=== PATIENT | female | born 1950 | race Caucasian/White ===

== ENCOUNTER 2020-02-04 08:40 | Outpatient (REF) | payer MEDICARE, SELFPAY ==
[2020-02-04 09:18] LABS: MANUAL DIFF FLAG NO
[2020-02-04 09:25] LABS: Basophils Percent Auto 0.6 % (0-2); Eosinophils Absolute Auto 0.2 X10*3/uL (0.0-0.4); Eosinophils Percent Auto 3.5 % (0-4); Hematocrit 42.5 % (37-47); Hemoglobin 14.2 g/dl (12.0-16.0); Imm Gran Abs Auto 0.02 X10*3/uL (0.00-0.03); Imm Gran Pct Auto 0.3 % (0.0-0.4); Lymphocytes Percent Auto 29.5 % (20-40); Mean Corpuscular HGB Conc 33.4 g/dl (31.0-35.0); Mean Corpuscular Hemoglobin 30.2 pg (27.0-33.0); Mean Corpuscular Volume 90.4 fL (80-98); Mean Platelet Volume 9.9 fL (9.4-12.3); Monocytes Absolute Auto 0.5 X10*3/uL (0.1-1.2); Monocytes Percent Auto 7.4 % (2-11); Neutrophils Absolute Auto 4.1 X10*3/uL (2.0-8.3); Neutrophils Percent Auto 58.7 % (45-73); Platelet Count 213 X10*3/uL (160-400); Red Cell Distribution Width 12.8 % (11.0-16.0); White Blood Count 6.9 X10*3/uL (4.8-10.8)
[2020-02-04 09:41] LABS: Alanine Aminotransferase 23 U/L (0-31); Alkaline Phosphatase 94 U/L (39-117); Anion Gap 11 (12-20); Aspartate Amino Transferase 24 U/L (5-31); Bilirubin Total 0.3 mg/dL (0.0-1.0); Blood Urea Nitrogen 12 mg/dL (9-16); Calcium 8.7 mg/dL (8.4-10.2); Carbon Dioxide 29 mmol/L (22-29); Chloride 104 mmol/L (96-108); Cholesterol 125 mg/dL; Estimated Glomerular Filt Rate > 60; Glucose Fasting 169 mg/dL (60-99); HDL Cholesterol 40 mg/dL; LDL Cholesterol Calculated 61 mg/dl; Potassium 4.5 mmol/l (3.3-5.1); Sodium 139 mmol/L (135-145); Total Protein 6.4 g/dL (6.5-8.0); Triglycerides 124 mg/dL
[2020-02-04 10:02] LABS: Thyroid Stimulating Hormone 3.07 mIU/mL (0.32-4.0); Vitamin D 25-OH Total 41.6 ng/mL (>30)
== END 2020-02-04 08:41 | disposition home or self-care (01) ==
LOC: HO.LAB 08:40
PROVIDERS: PCP Internal Medicine; Visit Provider Internal Medicine
DX: E11.65 Type 2 diabetes mellitus with hyperglycemia (principal); I10 Essential (primary) hypertension; E78.00 Pure hypercholesterolemia, unspecified; E03.9 Hypothyroidism, unspecified; E55.9 Vitamin D deficiency, unspecified
CPT/HCPCS: 36415; 80053; 80061; 82306; 84443; 85025

== ENCOUNTER 2020-08-30 06:38 | Outpatient (REF) | payer MEDICARE, SELFPAY ==
[2020-08-30 06:59] LABS: MANUAL DIFF FLAG NO
[2020-08-30 07:16] LABS: Basophils Absolute Auto 0.1 X10*3/uL (0.0-0.2); Basophils Percent Auto 0.9 % (0-2); Eosinophils Absolute Auto 0.2 X10*3/uL (0.0-0.4); Eosinophils Percent Auto 3.4 % (0-4); Hematocrit 44.9 % (37-47); Hemoglobin 14.8 g/dl (12.0-16.0); Imm Gran Abs Auto 0.02 X10*3/uL (0.00-0.03); Imm Gran Pct Auto 0.3 % (0.0-0.4); Lymphocytes Absolute Auto 2.2 X10*3/uL (1.2-4.9); Lymphocytes Percent Auto 33.6 % (20-40); Mean Corpuscular Hemoglobin 29.8 pg (27.0-33.0); Mean Corpuscular Volume 90.3 fL (80-98); Mean Platelet Volume 9.8 fL (9.4-12.3); Monocytes Absolute Auto 0.5 X10*3/uL (0.1-1.2); Monocytes Percent Auto 7.9 % (2-11); Neutrophils Absolute Auto 3.6 X10*3/uL (2.0-8.3); Neutrophils Percent Auto 53.9 % (45-73); Platelet Count 240 X10*3/uL (160-400); Red Blood Count 4.97 X10*6/uL (4.20-5.50); Red Cell Distribution Width 12.8 % (11.0-16.0); White Blood Count 6.7 X10*3/uL (4.8-10.8)
[2020-08-30 07:52] LABS: Estimated Average Glucose 174 mg/dL; Hemoglobin A1c % 7.7 %
[2020-08-30 07:59] LABS: Anion Gap 15 (12-20); Blood Urea Nitrogen 13 mg/dL (9-16); Carbon Dioxide 27 mmol/L (22-29); Chloride 102 mmol/L (96-108); Potassium 4.8 mmol/L (3.3-5.1); Sodium 139 mmol/L (135-145)
[2020-08-30 08:00] LABS: Alanine Aminotransferase 29 U/L (0-31); Albumin Level 4.3 g/dL (3.5-5.0); Alkaline Phosphatase 97 U/L (39-117); Aspartate Amino Transferase 22 U/L (5-31); Bilirubin Total 0.4 mg/dL (0.0-1.0); Calcium 9.6 mg/dL (8.4-10.2); Cholesterol 143 mg/dL; Estimated Glomerular Filt Rate > 60; Glucose Random 214 mg/dL (60-115); HDL Cholesterol 46 mg/dL; LDL Cholesterol Calculated 68 mg/dl; Magnesium 2.2 mg/dL (1.6-2.6); Total Protein 6.9 g/dL (6.5-8.0); Triglycerides 147 mg/dL
[2020-08-30 08:05] LABS: Thyroid Stimulating Hormone 3.12 uIU/mL (0.32-4.0)
[2020-08-30 09:24] LABS: Glucose Urine UA 250 MG/DL (NEG); Leukocyte Esterase Urine NEG (NEG); Nitrite Urine NEG (NEG); Specific Gravity - Urine >= 1.030 (1.005-1.025); Urine Blood NEG (NEG); Urine Ketones NEG (NEG); Urine Protein NEG (NEG-TRACE)
[2020-08-30 09:25] LABS: Appearance Urine HAZY; Color Urine YELLOW
[2020-08-30 09:53] LABS: Microalbum/Creatinine Ratio Ur 5.8 ug/mg cr
== END 2020-08-30 06:39 | disposition home or self-care (01) ==
LOC: HO.LAB 06:38
PROVIDERS: PCP Internal Medicine; Visit Provider Internal Medicine
DX: I10 Essential (primary) hypertension (principal); E78.00 Pure hypercholesterolemia, unspecified; E11.42 Type 2 diabetes mellitus with diabetic polyneuropathy; E55.9 Vitamin D deficiency, unspecified
CPT/HCPCS: 36415; 80053; 80061; 81003; 82043; 82306; 83036; 83735; 84443; 85025

== ENCOUNTER 2020-12-27 06:47 | Outpatient (REF) | payer MEDICARE, SELFPAY ==
[2020-12-27 07:47] LABS: Alanine Aminotransferase 25 U/L (0-31); Albumin Level 4.3 g/dL (3.5-5.0); Alkaline Phosphatase 108 U/L (39-117); Anion Gap 15 (12-20); Aspartate Amino Transferase 22 U/L (5-31); Bilirubin Total 0.5 mg/dL (0.0-1.0); Blood Urea Nitrogen 14 mg/dL (9-16); Calcium 9.2 mg/dL (8.4-10.2); Carbon Dioxide 25 mmol/L (22-29); Chloride 104 mmol/L (96-108); Estimated Glomerular Filt Rate > 60; Glucose Random 210 mg/dL (60-115); Sodium 139 mmol/L (135-145)
[2020-12-27 07:52] LABS: Estimated Average Glucose 154 mg/dL
== END 2020-12-27 06:48 | disposition home or self-care (01) ==
LOC: HO.LAB 06:47
PROVIDERS: PCP Internal Medicine; Visit Provider Internal Medicine
DX: I10 Essential (primary) hypertension (principal); E11.42 Type 2 diabetes mellitus with diabetic polyneuropathy
CPT/HCPCS: 36415; 80053; 83036

== ENCOUNTER 2021-05-24 13:38 | Outpatient (REF) | payer MEDICARE, SELFPAY ==
--- NOTE | 2021-05-24 | PFT_ITS ---
FLOWS: FEV1 88% of predicted at 2.13 L. FVC 94% of predicted at 2.99 L. FEV1 to FVC ratio of 0.71. No bronchodilator response. LUNG VOLUMES: Total lung capacity 106% of predicted at 5.56 L. Residual volume 124% of predicted at 2.76 L. Slow vital capacity 93% of predicted at 2.80 L. Expiratory reserve volume 33% of predicted at 0.26 L. Diffusion capacity is mildly decreased. IMPRESSION: No obstructive or restrictive ventilatory defect. No bronchodilator response. Increased residual volume suggests air trapping. Decreased expiratory reserve volume suggests extrathoracic restriction likely secondary to abdominal obesity. Decreased diffusion capacity suggests emphysema. MD ELADIO Jewell/MODL / [id number]
== END 2021-05-24 13:39 | disposition home or self-care (01) ==
LOC: HO.RESP 13:38
PROVIDERS: PCP Internal Medicine; Visit Provider Internal Medicine
DX: R06.00 Dyspnea, unspecified (principal)
CPT/HCPCS: 94060; 94727; 94729

== ENCOUNTER 2021-10-18 08:01 | Outpatient (REF) | payer MEDICARE, SELFPAY ==
[2021-10-18 08:10] LABS: MANUAL DIFF FLAG NO
[2021-10-18 08:48] LABS: Basophils Absolute Auto 0.1 X10*3/uL (0.0-0.2); Basophils Percent Auto 0.8 % (0-2); Eosinophils Absolute Auto 0.2 X10*3/uL (0.0-0.4); Eosinophils Percent Auto 3.3 % (0-4); Hematocrit 43.8 % (37.0-47.0); Hemoglobin 14.2 g/dl (12.0-16.0); Imm Gran Abs Auto 0.02 X10*3/uL (0.00-0.03); Imm Gran Pct Auto 0.3 % (0.0-0.4); Lymphocytes Absolute Auto 1.9 X10*3/uL (1.2-4.9); Lymphocytes Percent Auto 29.9 % (20-40); Mean Corpuscular HGB Conc 32.4 g/dl (31.0-35.0); Mean Corpuscular Hemoglobin 29.1 pg (27.0-33.0); Mean Corpuscular Volume 89.8 fL (80.0-98.0); Mean Platelet Volume 9.8 fL (9.4-12.3); Monocytes Absolute Auto 0.5 X10*3/uL (0.1-1.2); Monocytes Percent Auto 7.6 % (2-11); Neutrophils Absolute Auto 3.8 x10*3/uL (2.0-8.3); Neutrophils Percent Auto 58.1 % (45-73); Platelet Count 216 X10*3/uL (160-400); Red Blood Count 4.88 X10*6/uL (4.20-5.50); Red Cell Distribution Width 12.5 % (11.0-16.0); White Blood Count 6.5 X10*3/uL (4.8-10.8)
[2021-10-18 09:25] LABS: Alanine Aminotransferase 26 U/L (0-31); Alkaline Phosphatase 88 U/L (39-117); Anion Gap 14 (12-20); Aspartate Amino Transferase 24 U/L (5-31); Bilirubin Total 0.4 mg/dL (0.0-1.0); Blood Urea Nitrogen 12 mg/dL (9-16); Calcium 9.2 mg/dL (8.4-10.2); Carbon Dioxide 26 mmol/L (22-29); Chloride 104 mmol/L (96-108); Estimated Glomerular Filt Rate > 60; Glucose Random 191 mg/dL (60-115); Potassium 4.3 mmol/L (3.3-5.1); Sodium 140 mmol/L (135-145); Total Protein 6.5 g/dL (6.5-8.0)
[2021-10-18 09:31] LABS: Estimated Average Glucose 166 mg/dL; Hemoglobin A1c % 7.4 %
== END 2021-10-18 08:02 | disposition home or self-care (01) ==
LOC: HO.LAB 08:01
PROVIDERS: PCP Internal Medicine; Visit Provider Internal Medicine
DX: I10 Essential (primary) hypertension (principal); E11.40 Type 2 diabetes mellitus with diabetic neuropathy, unspecified
CPT/HCPCS: 36415; 80053; 83036; 85025

== ENCOUNTER 2022-05-22 06:18 | Outpatient (REF) | payer MEDICARE, SELFPAY ==
[2022-05-22 06:25] LABS: MANUAL DIFF FLAG NO
[2022-05-22 07:45] LABS: Basophils Absolute Auto 0.1 X10*3/uL (0.0-0.2); Basophils Percent Auto 0.9 % (0-2); Eosinophils Absolute Auto 0.2 X10*3/uL (0.0-0.4); Eosinophils Percent Auto 2.8 % (0-4); Hematocrit 44.3 % (37.0-47.0); Hemoglobin 14.5 g/dl (12.0-16.0); Imm Gran Abs Auto 0.02 X10*3/uL (0.00-0.03); Imm Gran Pct Auto 0.3 % (0.0-0.4); Lymphocytes Absolute Auto 2.2 X10*3/uL (1.2-4.9); Lymphocytes Percent Auto 27.9 % (20-40); Mean Corpuscular HGB Conc 32.7 g/dl (31.0-35.0); Mean Corpuscular Hemoglobin 29.7 pg (27.0-33.0); Mean Corpuscular Volume 90.8 fL (80.0-98.0); Mean Platelet Volume 10.1 fL (9.4-12.3); Monocytes Absolute Auto 0.6 X10*3/uL (0.1-1.2); Monocytes Percent Auto 7.8 % (2-11); Neutrophils Absolute Auto 4.8 x10*3/uL (2.0-8.3); Neutrophils Percent Auto 60.3 % (45-73); Platelet Count 245 X10*3/uL (160-400); Red Blood Count 4.88 X10*6/uL (4.20-5.50); Red Cell Distribution Width 12.8 % (11.0-16.0); White Blood Count 7.9 X10*3/uL (4.8-10.8)
[2022-05-22 08:07] LABS: Appearance Urine Clear; Color Urine Yellow; Glucose Urine UA 100 mg/dL (Negative); Leukocyte Esterase Urine Small (1+) (Negative); Nitrite Urine Negative (Negative); UMIC TRIGGER UA YES; Urine Blood Negative (Negative); Urine Ketones Negative (Negative); Urine Protein Negative (Neg-Trace)
[2022-05-22 08:18] LABS: Estimated Average Glucose 151 mg/dL; Hemoglobin A1c % 6.9 %
[2022-05-22 08:22] LABS: Alanine Aminotransferase 17 U/L (0-31); Alkaline Phosphatase 99 U/L (39-117); Anion Gap 13 (12-20); Aspartate Amino Transferase 20 U/L (5-31); Bilirubin Total 0.4 mg/dL (0.0-1.0); Blood Urea Nitrogen 13 mg/dL (9-16); Calcium 9.1 mg/dL (8.4-10.2); Carbon Dioxide 27 mmol/L (22-29); Chloride 102 mmol/L (96-108); Cholesterol 142 mg/dL; Estimated Glomerular Filt Rate > 60; Glucose Random 167 mg/dL (60-115); HDL Cholesterol 42 mg/dL; LDL Cholesterol Calculated 75 mg/dl; Potassium 4.3 mmol/L (3.3-5.1); Sodium 138 mmol/L (135-145); Total Protein 6.5 g/dL (6.5-8.0); Triglycerides 128 mg/dL
[2022-05-22 08:23] LABS: Bacteria Urine None Seen (None Seen); Hyaline Casts Urine 0-2 /LPF (0-2); RBC Urine 0-2 /HPF (0-2); WBC Urine 0-5 /HPF (0-5)
[2022-05-22 08:33] LABS: Creatinine Urine 99.98 mg/dL
[2022-05-22 08:38] LABS: Thyroid Stimulating Hormone 2.11 uIU/mL (0.32-4.0)
[2022-05-22 08:43] LABS: Vitamin B12 317 pg/mL (200-900)
== END 2022-05-22 06:19 | disposition home or self-care (01) ==
LOC: HO.LAB 06:18
PROVIDERS: PCP Internal Medicine; Visit Provider Internal Medicine
DX: E78.00 Pure hypercholesterolemia, unspecified (principal); E11.42 Type 2 diabetes mellitus with diabetic polyneuropathy; R00.2 Palpitations; E03.9 Hypothyroidism, unspecified
CPT/HCPCS: 36415; 80053; 80061; 81001; 81003; 82043; 82607; 83036; 84443; 85025

== ENCOUNTER 2022-09-27 02:17 | Emergency (ER) | payer MEDICARE, SELFPAY ==
--- NOTE | 2022-09-27 | ECG_ITS ---
Test Reason : DIZZINESS Blood Pressure : / mmHG Vent. Rate : 076 BPM Atrial Rate : 076 BPM P-R Int : 244 ms QRS Dur : 114 ms QT Int : 412 ms P-R-T Axes : 061 -53 036 degrees QTc Int : 463 ms Sinus rhythm with 1st degree A-V block Left axis deviation Right bundle branch block Minimal voltage criteria for LVH, may be normal variant ( R in aVL ) Inferior infarct , age undetermined Abnormal ECG When compared with ECG of 03-MAR-2011 07:21, WI interval has increased Right bundle branch block is now Present Referred By: Generic ED Physician Electronically Signed By:HARRISON DE JESUS
--- NOTE | ~2022-09-27 | CT_ITS ---
EXAMINATION: CT HEAD WITHOUT CONTRAST CLINICAL INFORMATION: Dizziness COMPARISON: 06/27/2013 TECHNIQUE: Contiguous axial imaging was performed from the skull base to vertex without intravenous administration of contrast. This CT examination was performed using dose optimization techniques as appropriate, variously including the following: *Automated exposure control *Adjustment of mA and/or kV according to patient size (this includes techniques or standardized protocols for targeted exams where dose is matched to indication/reason for exam; i.e. extremities or head) *Use of iterative reconstruction technique DLP: 839 mGy-cm FINDINGS: There is no evidence of acute intracranial hemorrhage or territorial infarction. No abnormal mass effect or midline shift is seen. [place]ott to white matter differentiation is well preserved. No extra-axial fluid collections are identified. No hydrocephalus. Proportional prominence of the ventricles and sulcal spaces is consistent with mild volume loss. Patchy periventricular and deep white matter hypoattenuation is consistent with moderate small vessel ischemic changes. There is an 8 x 4 x 10 mm extra-axial ovoid mass along the right aspect of the anterior falx most compatible with a small meningioma. No acute osseous or soft tissue abnormality. The mastoid air cells and visualized portions of the paranasal sinuses are well aerated, apart from mild mucosal thickening in the right maxillary sinus.. CT/CT head/brain wo IV con IMPRESSION: * No acute intracranial pathology. * Moderate chronic white matter small vessel ischemic changes and mild generalized brain parenchymal volume loss. * Incidental 10 mm extra-axial mass along the right aspect of the anterior falx most compatible with a small meningioma.
[2022-09-27 02:22] VITALS: BP 120/80; BP 150/71; PULSE 83; PULSE 85; RESP 13; O2SAT 96; O2SAT 97; BMI 34.0
[2022-09-27] MEDS: Ondansetron ODT 4 MG TAB.RAPDIS TRANSLINGU (02:44)
[2022-09-27 02:58] LABS: MANUAL DIFF FLAG NO
[2022-09-27 03:00] LABS: Basophils Percent Auto 0.6 % (0-2); Eosinophils Absolute Auto 0.2 X10*3/uL (0.0-0.4); Eosinophils Percent Auto 2.5 % (0-4); Hematocrit 41.7 % (37.0-47.0); Hemoglobin 13.6 g/dl (12.0-16.0); Imm Gran Abs Auto 0.02 X10*3/uL (0.00-0.03); Imm Gran Pct Auto 0.3 % (0.0-0.4); Lymphocytes Absolute Auto 1.9 X10*3/uL (1.2-4.9); Lymphocytes Percent Auto 26.6 % (20-40); Mean Corpuscular HGB Conc 32.6 g/dl (31.0-35.0); Mean Corpuscular Hemoglobin 28.9 pg (27.0-33.0); Mean Corpuscular Volume 88.5 fL (80.0-98.0); Mean Platelet Volume 9.7 fL (9.4-12.3); Monocytes Absolute Auto 0.6 X10*3/uL (0.1-1.2); Monocytes Percent Auto 8.3 % (2-11); Neutrophils Absolute Auto 4.5 x10*3/uL (2.0-8.3); Neutrophils Percent Auto 61.7 % (45-73); Platelet Count 203 X10*3/uL (160-400); Red Blood Count 4.71 X10*6/uL (4.20-5.50); Red Cell Distribution Width 12.7 % (11.0-16.0); White Blood Count 7.3 X10*3/uL (4.8-10.8)
[2022-09-27 03:01] LABS: Glucose, Whole Blood 178 mg/dL (60-115)
[2022-09-27 03:18] LABS: Alanine Aminotransferase 18 U/L (0-31); Albumin Level 4.1 g/dL (3.5-5.0); Alkaline Phosphatase 102 U/L (39-117); Anion Gap 15 (12-20); Aspartate Amino Transferase 16 U/L (5-31); Bilirubin Direct 0.1 mg/dL (0.0-0.5); Bilirubin Total 0.3 mg/dL (0.0-1.0); Blood Urea Nitrogen 11 mg/dL (9-16); Calcium 9.4 mg/dL (8.4-10.2); Carbon Dioxide 24 mmol/L (22-29); Chloride 107 mmol/L (96-108); Creatinine Clr Calc Pharmacy 78.9; Estimated Glomerular Filt Rate > 60; Glucose Random 172 mg/dL (60-115); Lipase 28 U/L (8-78); Potassium 3.6 mmol/L (3.3-5.1); Sodium 142 mmol/L (135-145); Total Protein 6.6 g/dL (6.5-8.0)
[2022-09-27] MEDS: Prochlorperazine Edisylate 10 MG/2 ML VIAL IVPUSH (03:51)
--- OUTSIDE RECORDS SUMMARY | 2022-09-27 03:52 | XMS_ITS | Continuity of Care Document ---
Author Name Unknown Organization [facility] ter Address [address] [place] [id number] Care Team Providers Care Log Roller Name Role Phone Valente Curry MD Primary Care Physician [phone] [place] [facility] [place] 08/28/[address] [address]- [facility] Attending Physician: Valente Curry MD Admitting Physician: Valente Curry MD Referring Physician: Valente Curry MD Allergies, Adverse Reactions, Alerts Substance Reaction Severity Status penicillin vomiting Moderate Active Adhesive Bandage 1 blisters Moderate Active 1pt allergic to tape, steri-strips Medications Atenolol = 50 mg, By Mouth, Daily, 0 Refills, Maintenance, 03/22/14 13:25:02 Start Date: 03/22/14 Status: Ordered Diltiazem = 120 mg, 0 Refills, Maintenance, 03/22/14 13:25:56 Start Date: 03/22/14 Status: Ordered GlipiZIDE = 5 mg, By Mouth, Daily, 0 Refills, Maintenance, 03/22/14 13:26:43 Start Date: 03/22/14 Status: Ordered Levothyroxine = 175 mcg, Daily, 0 Refills, Maintenance, 03/22/14 13:27:28 Start Date: 03/22/14 Status: Ordered Neurontin Capsule 300 mg, By Mouth, 3 times a day, Maintenance, 03/22/14 13:28:42 Start Date: 03/22/14 Status: Ordered Pravastatin = 40 mg, By Mouth, Daily at bedtime, 0 Refills, Maintenance, 03/22/14 13:26:08 Start Date: 03/22/14 Status: Ordered Problem List Condition Effective Dates Status Health Status Inform ant Leg pain, bilateral(Confirmed) Active
--- NOTE | 2022-09-27 04:02 | ED_ITS ---
HPI - Dizziness General Chief Complaint: Dizziness Stated Complaint: Dizziness + nausea and feels like hearts racing Time Seen by Provider: 09/27/22 02:52 Source: patient Mode of arrival: EMS History of Present Illness HPI Narrative: 72-year-old female is brought in by EMS with than underlying history hypertension, S current everyday smoker, who states that she has had dizziness and nausea for over a week, followed up with her ENT physician who did remove cerumen from her right ear and she states that afterwards initially the dizzines s and nausea resolved, she was started on generic Dramamine, but states that the dizziness and the nausea is continued to persist, she does not eat very much because it is so significant and then she states that she has had much worse dizziness throughout the day to the point that she is unable to stand at this time. She otherwise denies shortness of breath, chest pain, bowel or bladder dysfunction and denies any visual or auditory changes. Related Data Previous Rx's Medication Instructions Recorded ondansetron HCl 8 mg tablet 8 mg PO Q8H PRN nausea and 01/18/21 vomiting #20 tabs prednisone 20 mg tablet 20 mg PO .COMPLEX #18 tabs 01/18/21 meclizine 12.5 mg tablet 12.5 mg PO TID PRN dizziness #10 09/27/22 tabs Allergies Allergy/AdvReac Type Severity Reaction Status Date / Time doxycycline [From VIBRAMYCIN] Allergy Severe SWELLING Verified 01/18/21 14:01 Penicillins [PCN] AdvReac Intermediate VOMITING Verified 01/18/21 14:01 Review of Systems Review of Systems: Pertinent positives and negatives as stated in HPI PMFSH Past Medical History Source: nursing notes reviewed Social History Social History Alcohol intake: never Smoked in Last 30 Days: Yes Use of substances other than those prescribed or required for medical reasons: No Advance Directives: No Advance Directives Information Provided: Yes Physical Exam Vital Signs: Vital Signs: Last Vital Signs Pulse 88 09/27/22 05:17 Resp 13 09/27/22 02:22 BP 177/44 H 09/27/22 05:17 Pulse Ox 96 09/27/22 02:22 O2 Del Method Room Air 09/27/22 02:22 BMI result Body Mass Index 34.0 VITAL SIGNS: Reviewed. GENERAL: Well developed, well nourished, in no acute distress. HEAD: Normocephalic/atraumatic EYES: PERRLA, EOMI EARS: Ext canals without abnormality, TMs non-bulging and non-erythematous NOSE: Nares patent bilateral OROPHARYNX: no oral lesions noted, posterior pharynx clear and non-erythematous without noted tonsillar enlargement/erythema/exudates NECK: Supple, no adenopathy LUNGS: Normal breath sounds. No adventitious sounds or accessory muscle use. SpO2<96> CARDIOVASCULAR: Regular rate and rhythm without noted murmurs, no JVD or lower extremity edema. ABDOMEN: Soft, non-tender, non-distended with bowel sounds. MUSCULOSKELETAL: No tenderness, deformities, or effusions noted on gross inspect ion. EXTREMITIES: No cyanosis, clubbing or edema. SKIN: Inspection of the skin reveals no rashes NEUROLOGIC: Alert and oriented x 4. Strength and sensation to light touch were grossly intact x 4, no facial asymmetry, no pronator drift, heel to cornejo is intact, past pointing is intact, cranial nerves 2-12 are grossly intact. Medications Administered Discontinued Medications Generic Name Dose Route Start Last Admin Trade Name Freq PRN Reason Stop Dose Admin Sodium Chloride 1,000 mls @ 999 mls/hr 09/27/22 03:45 09/27/22 05:28 Ns IV 09/27/22 04:45 Infused .Q1H1M JONAS Infusion Meclizine HCl 12.5 mg 09/27/22 04:55 09/27/22 05:28 Meclizine Hcl 12.5 Mg Tablet PO 09/27/22 04:56 12.5 mg ONCE ONE Administration Ondansetron HCl 4 mg 09/27/22 02:37 09/27/22 02:44 Ondansetron Odt 4 Mg Tab.Rapdis TRANSLINGU 09/27/22 02:38 4 mg ONCE ONE Administration Prochlorperazine Edisylate 10 mg 09/27/22 03:38 09/27/22 03:51 Prochlorperazine Edisylate 10 Mg/2 Ml Vial IVPUSH 09/27/22 03:39 10 mg ONCE ONE Administration Medical Decision Making Medical Decision Making MDM Narrative: 72-year-old female who does report that approximately 1 and half years ago she had a significant episode of vertigo but states that this does feel somewhat different. Will obtain basic labs, EKG, and based on symptom all NG with hypertension and an everyday smoker will pursue CT scans. Reviewed all investigations as well as imaging studies in my interpretation as that patient likely has BPPV, she was given meclizine, orthostatics are noted to be within normal limits but also gave patient 1 L of IV fluids. Patient was noted to ambulate to the bathroom without difficulty. Patient is declining CT angio of head and neck. On re-evaluation patient is feeling better and will be discharged home. Differential Diagnosis Please see the discussion above Lab Data Please see the discussion above 09/27/22 02:53 09/27/22 02:53 Labs: Lab Results 09/27/22 09/27/22 09/27/22 Range/Units 02:44 02:53 02:53 WBC 7.3 (4.8-10.8) X10*3/uL RBC 4.71 (4.20-5.50) X10*6/uL Hgb 13.6 (12.0-16.0) g/dl Hct 41.7 (37.0-47.0) % MCV 88.5 (80.0-98.0) fL MCH 28.9 (27.0-33.0) pg MCHC 32.6 (31.0-35.0) g/dl RDW 12.7 (11.0-16.0) % Plt Count 203 (160-400) X10*3/uL MPV 9.7 (9.4-12.3) fL Immature Gran % (Auto) 0.3 (0.0-0.4) % Neut % (Auto) 61.7 (45-73) % Lymph % (Auto) 26.6 (20-40) % [place] % (Auto) 8.3 (2-11) % Eos % (Auto) 2.5 (0-4) % Baso % (Auto) 0.6 (0-2) % Lymph # (Auto) 1.9 (1.2-4.9) X10*3/uL [place] # (Auto) 0.6 (0.1-1.2) X10*3/uL Eos # (Auto) 0.2 (0.0-0.4) X10*3/uL Baso # (Auto) 0.0 (0.0-0.2) X10*3/uL Abs Immat Gran (auto) 0.02 (0.00-0.03) X10*3/uL Absolute Neuts (auto) 4.5 (2.0-8.3) x10*3/uL Absolute Nucleated RBC 0.000 (0.0-0.012) X10*3/uL Nucleated RBC % (auto) 0.0 (0.0-0.2) /100WBC Sodium 142 (135-145) mmol/L Potassium 3.6 (3.3-5.1) mmol/L Chloride 107 (96-108) mmol/L Carbon Dioxide 24 (22-29) mmol/L Anion Gap 15 (12-20) BUN 11 (9-16) mg/dL Creatinine 0.72 (0.5-1.4) mg/dL Estim Creat Clear Calc 78.9 Estimated GFR > 60 POC Glucose 178 H (60-115) mg/dL Random Glucose 172 H (60-115) mg/dL Calcium 9.4 (8.4-10.2) mg/dL Total Bilirubin 0.3 (0.0-1.0) mg/dL Direct Bilirubin 0.1 (0.0-0.5) mg/dL AST 16 (5-31) U/L ALT 18 (0-31) U/L Alkaline Phosphatase 102 (39-117) U/L Troponin I High Sens (<3.5-17.0) ng/L Total Protein 6.6 (6.5-8.0) g/dL Albumin 4.1 (3.5-5.0) g/dL Lipase 28 (8-78) U/L Urine Test (NEGATIVE) 09/27/22 09/27/22 Range/Units 04:39 06:22 WBC (4.8-10.8) X10*3/uL RBC (4.20-5.50) X10*6/uL Hgb (12.0-16.0) g/dl Hct (37.0-47.0) % MCV (80.0-98.0) fL MCH (27.0-33.0) pg MCHC (31.0-35.0) g/dl RDW (11.0-16.0) % Plt Count (160-400) X10*3/uL MPV (9.4-12.3) fL Immature Gran % (Auto) (0.0-0.4) % Neut % (Auto) (45-73) % Lymph % (Auto) (20-40) % [place] % (Auto) (2-11) % Eos % (Auto) (0-4) % Baso % (Auto) (0-2) % Lymph # (Auto) (1.2-4.9) X10*3/uL [place] # (Auto) (0.1-1.2) X10*3/uL Eos # (Auto) (0.0-0.4) X10*3/uL Baso # (Auto) (0.0-0.2) X10*3/uL Abs Immat Gran (auto) (0.00-0.03) X10*3/uL Absolute Neuts (auto) (2.0-8.3) x10*3/uL Absolute Nucleated RBC (0.0-0.012) X10*3/uL Nucleated RBC % (auto) (0.0-0.2) /100WBC Sodium (135-145) mmol/L Potassium (3.3-5.1) mmol/L Chloride (96-108) mmol/L Carbon Dioxide (22-29) mmol/L Anion Gap (12-20) BUN (9-16) mg/dL Creatinine (0.5-1.4) mg/dL Estim Creat Clear Calc Estimated GFR POC Glucose (60-115) mg/dL Random Glucose (60-115) mg/dL Calcium (8.4-10.2) mg/dL Total Bilirubin (0.0-1.0) mg/dL Direct Bilirubin (0.0-0.5) mg/dL AST (5-31) U/L ALT (0-31) U/L Alkaline Phosphatase (39-117) U/L Troponin I High Sens 3.8 (<3.5-17.0) ng/L Total Protein (6.5-8.0) g/dL Albumin (3.5-5.0) g/dL Lipase (8-78) U/L Urine Test NEGATIVE (NEGATIVE) Independent Interpretation I performed an independent interpretation of an: EKG Interpretation: Sinus rhythm with first-degree AV block, no STEMI, RBBB, comparison EKG is from 2011 so there are obvious changes. Radiology Impression Radiologist Impression: My interpretation is in agreement with radiology's impression. External Record Review External record reviewed: Prior outpatient labs Discharge Plan Discharge Clinical Impression: BPV (benign positional vertigo) Patient Disposition: Home, Self-Care Instructions: Vertigo (ED), Benign Paroxysmal Positional Vertigo (ED) Additional Instructions: 1. Follow-up with primary care provider on Thursday. 2. You have been given a prescription for as needed medication for your vertigo. Return to the ER for any worsening symptoms. Prescriptions: New meclizine 12.5 mg tablet 12.5 mg PO TID PRN (Reason: dizziness) Qty: 10 0RF No Action prednisone 20 mg tablet 20 mg PO .COMPLEX Qty: 18 0RF Rx Instructions: 20 mg PO 3 p.o. daily for 3 days followed by 2 p.o. daily for 3 days followed by 1 p.o. daily for 3 days; ondansetron HCl 8 mg tablet 8 mg PO Q8H PRN (Reason: nausea and vomiting) Qty: 20 0RF Referrals: Valente Curry MD [Primary Care Provider] -
[2022-09-27] MEDS: 0.9 % Sodium Chloride 1,000 ML 999 ML IV (04:15)
[2022-09-27 05:01] LABS: Troponin-I High Sensitivity 3.8 ng/L (<3.5-17.0)
[2022-09-27 05:12] VITALS: BP 174/70; PULSE 80
[2022-09-27 05:14] VITALS: BP 151/57; PULSE 77
[2022-09-27 05:17] VITALS: BP 177/44; PULSE 88
[2022-09-27] MEDS: Meclizine HCl 12.5 MG TABLET PO (05:28)
--- NOTE | 2022-09-27 05:36 | PC.NURSE ---
Pt refusing CTA, stating she is too nauseaus and the CT table is too hard. MD aware.
[2022-09-27 06:29] LABS: Appearance Urine Clear; Color Urine Yellow; Glucose Urine UA Negative (Negative); Leukocyte Esterase Urine Trace (Negative); Nitrite Urine Negative (Negative); Specific Gravity - Urine <= 1.005 (1.005-1.025); UMIC TRIGGER UACC YES; Urine Blood Negative (Negative); Urine Ketones Negative (Negative); Urine Protein Negative (Neg-Trace)
[2022-09-27 06:31] LABS: UPreg QC Valid YES; Urine Pregnancy NEGATIVE (NEGATIVE)
[2022-09-27 07:16] LABS: Bacteria Urine None Seen (None Seen); Hyaline Casts Urine 0-2 /LPF (0-2); RBC Urine 0-2 /HPF (0-2); Squamous Epithelial Cell Urine 0-2 /HPF (0-2); WBC Urine 0-5 /HPF (0-5)
== END 2022-09-27 07:32 | disposition home or self-care (01) ==
PROVIDERS: Emergency Provider Student in an Organized Health Care Education/Training Program; PCP Internal Medicine
DX: H81.10 Benign paroxysmal vertigo, unspecified ear (principal)
CPT/HCPCS: 36415; 70450; 80053; 81001; 81003; 81025; 82248; 82947; 83690; 84484; 85025; 93005; 96361; 96374; 99284; 99285

== ENCOUNTER 2022-11-28 16:14 | Outpatient (REF) | payer MEDICARE, SELFPAY ==
--- NOTE | ~2022-11-28 | MR_ITS ---
EXAMINATION: MR BRAIN WITHOUT CONTRAST CLINICAL INFORMATION: Vertigo and hearing loss. Right ear pain. COMPARISON: Head CT dated 09/27/2022. TECHNIQUE: Multiplanar, multisequence imaging of the brain was performed without contrast. FINDINGS: No diffusion abnormalities are identified to suggest an acute or subacute infarct. The ventricles are normal in size. No mass effect or midline shift is seen. [id number] chronic white matter microangiopathic changes noted with generalized parenchymal volume loss. No extra-axial fluid collections are seen. The brainstem and cerebellum are normal. The VII and VIII cranial nerve complexes are normal in course and caliber. Fluid signal is preserved within the cochlea, semicircular canals, and vestibule on the high-resolution axial FIESTA sequence. No cerebellopontine angle lesion is noted. An incidental 5 mm cyst in the region of the left dentate nucleus is nonspecific and may represent a neuroglial cyst. The gradient refocused acquisition is normal. The craniovertebral junction, marrow signal, and midline structures are normal. The major intracranial flow voids at the level of the [place] are preserved. The dural venous sinus flow voids are maintained. The mastoid air cells are well aerated. There is a mild amount of fluid layering in the right maxillary antrum. MR/MR head/brain wo con IMPRESSION: No acute intracranial process. [id number] chronic white matter microangiopathy. No retrocochlear process evident on this noncontrast study. Mild amount of fluid layering within the right maxillary sinus; correlate for any underlying acute symptomatology.
== END 2022-11-28 16:15 | disposition home or self-care (01) ==
LOC: HO.MRI 16:14
PROVIDERS: PCP Internal Medicine; Visit Provider Internal Medicine
DX: R42 Dizziness and giddiness (principal); R11.0 Nausea; H91.93 Unspecified hearing loss, bilateral; H92.01 Otalgia, right ear
CPT/HCPCS: 70551

== ENCOUNTER 2022-12-10 06:13 | Outpatient (REF) | payer MEDICARE, SELFPAY ==
[2022-12-10 07:23] LABS: Estimated Average Glucose 140 mg/dL; Hemoglobin A1c % 6.5 %
[2022-12-10 07:51] LABS: Alanine Aminotransferase 12 U/L (0-31); Alkaline Phosphatase 84 U/L (39-117); Anion Gap 16 (12-20); Aspartate Amino Transferase 13 U/L (5-31); Blood Urea Nitrogen 9 mg/dL (9-16); Calcium 9.5 mg/dL (8.4-10.2); Carbon Dioxide 25 mmol/L (22-29); Chloride 104 mmol/L (96-108); Estimated Glomerular Filt Rate > 60; Glucose Random 193 mg/dL (60-115); Potassium 3.4 mmol/L (3.3-5.1); Sodium 142 mmol/L (135-145); Total Protein 6.8 g/dL (6.5-8.0)
[2022-12-10 07:54] LABS: Bilirubin Total 0.5 mg/dL (0.0-1.0)
[2022-12-10 08:28] LABS: Appearance Urine Clear; Color Urine Yellow; Glucose Urine UA 250 mg/dL (Negative); Leukocyte Esterase Urine Negative (Negative); Nitrite Urine Negative (Negative); PH 5.5 (5.0-9.0); Urine Blood Negative (Negative); Urine Ketones Negative (Negative); Urine Protein Trace mg/dL (Neg-Trace)
== END 2022-12-10 06:14 | disposition home or self-care (01) ==
LOC: HO.LAB 06:13
PROVIDERS: PCP Internal Medicine; Visit Provider Internal Medicine
DX: E11.42 Type 2 diabetes mellitus with diabetic polyneuropathy (principal); I10 Essential (primary) hypertension; E03.9 Hypothyroidism, unspecified
CPT/HCPCS: 36415; 80053; 81003; 83036

== ENCOUNTER 2023-11-27 08:15 | Outpatient (REF) | payer MEDICARE, SELFPAY ==
[2023-11-27 08:28] LABS: MANUAL DIFF FLAG NO
[2023-11-27 08:56] LABS: Basophils Absolute Auto 0.1 X10*3/uL (0.0-0.2); Basophils Percent Auto 1.2 % (0-2); Eosinophils Absolute Auto 0.2 X10*3/uL (0.0-0.4); Eosinophils Percent Auto 3.6 % (0-4); Hematocrit 43.6 % (37.0-47.0); Hemoglobin 14.3 g/dl (12.0-16.0); Imm Gran Abs Auto 0.02 X10*3/uL (0.00-0.03); Imm Gran Pct Auto 0.3 % (0.0-0.4); Lymphocytes Percent Auto 30.4 % (20-40); Mean Corpuscular HGB Conc 32.8 g/dl (31.0-35.0); Mean Corpuscular Hemoglobin 28.6 pg (27.0-33.0); Mean Corpuscular Volume 87.2 fL (80.0-98.0); Mean Platelet Volume 9.6 fL (9.4-12.3); Monocytes Absolute Auto 0.5 X10*3/uL (0.1-1.2); Monocytes Percent Auto 6.8 % (2-11); Neutrophils Absolute Auto 3.8 x10*3/uL (2.0-8.3); Neutrophils Percent Auto 57.7 % (45-73); Platelet Count 244 X10*3/uL (160-400); Red Cell Distribution Width 13.2 % (11.0-16.0); White Blood Count 6.6 X10*3/uL (4.8-10.8)
[2023-11-27 09:09] LABS: Estimated Average Glucose 140 mg/dL; Hemoglobin A1c % 6.5 % (<6.0)
[2023-11-27 09:27] LABS: Alanine Aminotransferase 17 U/L (0-31); Albumin Level 4.1 g/dL (3.5-5.0); Alkaline Phosphatase 105 U/L (39-117); Anion Gap 16 (12-20); Aspartate Amino Transferase 20 U/L (5-31); Bilirubin Total 0.3 mg/dL (0.0-1.0); Blood Urea Nitrogen 13 mg/dL (9-16); Calcium 9.3 mg/dL (8.4-10.2); Carbon Dioxide 24 mmol/L (22-29); Chloride 106 mmol/L (96-108); Cholesterol 136 mg/dL (<200); Estimated Glomerular Filt Rate > 60; Glucose Random 155 mg/dL (60-115); HDL Cholesterol 46 mg/dL (>40); LDL Cholesterol Calculated 62 mg/dL (<100); Potassium 4.8 mmol/L (3.3-5.1); Sodium 141 mmol/L (135-145); Total Protein 6.9 g/dL (6.5-8.0); Triglycerides 141 mg/dL (<150)
[2023-11-27 09:31] LABS: Appearance Urine Clear; Color Urine Yellow; Glucose Urine UA 100 mg/dL (Negative); Leukocyte Esterase Urine Trace (Negative); Nitrite Urine Negative (Negative); Specific Gravity - Urine 1.025 (1.005-1.025); UMIC TRIGGER UA YES; Urine Blood Negative (Negative); Urine Ketones Trace mg/dL (Negative); Urine Protein Negative (Neg-Trace)
[2023-11-27 09:33] LABS: Bacteria Urine None Seen (None Seen); Hyaline Casts Urine 0-2 /LPF (0-2); RBC Urine 0-2 /HPF (0-2); Squamous Epithelial Cell Urine 0-2 /HPF (0-2); WBC Urine 0-5 /HPF (0-5)
[2023-11-27 09:41] LABS: Thyroid Stimulating Hormone 0.64 uIU/mL (0.32-4.0); Vitamin D 25-OH Total 43.6 ng/mL (>30)
[2023-11-27 10:56] LABS: Creatinine Urine 144.59 mg/dL; Microalbum/Creatinine Ratio Ur 6.9 ug/mg cr (<30)
== END 2023-11-27 08:16 | disposition home or self-care (01) ==
LOC: HO.LAB 08:15
PROVIDERS: PCP Internal Medicine; Visit Provider Internal Medicine
DX: E11.42 Type 2 diabetes mellitus with diabetic polyneuropathy (principal); I10 Essential (primary) hypertension; E03.9 Hypothyroidism, unspecified; E55.9 Vitamin D deficiency, unspecified
CPT/HCPCS: 36415; 80053; 80061; 81001; 82043; 82306; 82570; 83036; 84443; 85025

== ENCOUNTER 2024-06-25 08:43 | Outpatient (REF) | payer MEDICARE, SELFPAY ==
[2024-06-25 09:04] LABS: MANUAL DIFF FLAG NO
[2024-06-25 10:10] LABS: Estimated Average Glucose 140 mg/dL; Hemoglobin A1C 160.0259 umol/L; Hemoglobin A1c % 6.5 % (<6.0); Total Hemoglobin (HGBA1C) 3366.1111 umol/L
[2024-06-25 10:19] LABS: Basophils Absolute Auto 0.1 X10*3/uL (0.0-0.2); Basophils Percent Auto 1.2 % (0-2); Eosinophils Absolute Auto 0.2 X10*3/uL (0.0-0.4); Eosinophils Percent Auto 3.4 % (0-4); Hematocrit 39.5 % (37.0-47.0); Hemoglobin 12.9 g/dl (12.0-16.0); Imm Gran Abs Auto 0.02 X10*3/uL (0.00-0.03); Imm Gran Pct Auto 0.3 % (0.0-0.4); Lymphocytes Absolute Auto 1.8 X10*3/uL (1.2-4.9); Lymphocytes Percent Auto 29.7 % (20-40); Mean Corpuscular HGB Conc 32.7 g/dl (31.0-35.0); Mean Corpuscular Hemoglobin 27.9 pg (27.0-33.0); Mean Corpuscular Volume 85.3 fL (80.0-98.0); Mean Platelet Volume 9.6 fL (9.4-12.3); Monocytes Absolute Auto 0.5 X10*3/uL (0.1-1.2); Monocytes Percent Auto 7.7 % (2-11); Neutrophils Absolute Auto 3.4 x10*3/uL (2.0-8.3); Neutrophils Percent Auto 57.7 % (45-73); Platelet Count 271 X10*3/uL (160-400); Red Blood Count 4.63 X10*6/uL (4.20-5.50); Red Cell Distribution Width 13.6 % (11.0-16.0)
[2024-06-25 10:38] LABS: Alanine Aminotransferase 18 U/L (0-31); Alkaline Phosphatase 104 U/L (39-117); Anion Gap 15 (12-20); Aspartate Amino Transferase 26 U/L (5-31); Bilirubin Total 0.4 mg/dL (0.0-1.0); Blood Urea Nitrogen 12 mg/dL (9-16); Calcium 9.1 mg/dL (8.4-10.2); Carbon Dioxide 25 mmol/L (22-29); Chloride 106 mmol/L (96-108); Estimated Glomerular Filt Rate > 60; Glucose Random 149 mg/dL (60-115); Potassium 4.6 mmol/L (3.3-5.1); Sodium 141 mmol/L (135-145); Total Protein 7.1 g/dL (6.5-8.0)
== END 2024-06-25 08:44 | disposition home or self-care (01) ==
LOC: HO.LAB 08:43
PROVIDERS: PCP Internal Medicine; Visit Provider Registered Nurse
DX: R42 Dizziness and giddiness (principal); Z13.1 Encounter for screening for diabetes mellitus
CPT/HCPCS: 36415; 80053; 83036; 85025

== ENCOUNTER 2024-12-23 07:39 | Outpatient (REF) | payer MEDICARE, SELFPAY ==
[2024-12-23 08:33] LABS: Appearance Urine Clear; Glucose Urine UA 100 mg/dL (Negative); PH 6.0 (5.0-9.0); Specific Gravity - Urine 1.015 (1.005-1.025)
[2024-12-23 09:15] LABS: Microalbum/Creatinine Ratio Ur 10.8 ug/mg cr (<30)
[2024-12-23 09:25] LABS: Hemoglobin A1C 171.6799 umol/L; Total Hemoglobin (HGBA1C) 3445.1139 umol/L
== END 2024-12-23 07:40 | disposition home or self-care (01) ==
LOC: HO.LAB 07:39
PROVIDERS: PCP Internal Medicine; Visit Provider Internal Medicine
DX: I10 Essential (primary) hypertension (principal); E11.42 Type 2 diabetes mellitus with diabetic polyneuropathy; E03.9 Hypothyroidism, unspecified
CPT/HCPCS: 36415; 81003; 82043; 82570; 83036

== ENCOUNTER 2024-12-30 08:23 | Outpatient (REF) | payer MEDICARE, SELFPAY ==
--- OUTSIDE RECORDS SUMMARY | 2024-12-28 16:00 | XMS_ITS | Encounter Summary ---
Author Organization [facility] Address [address] [place] [address] Phone Care Team Providers Care Rubber Block Layer Name Role Phone Valente Curry MD Primary Care Provider [phone] Juan Luis Mcnamara MD Unavailable Valente Curry MD Unavailable [phone] Reason for Referral * MRI/CAT Scan - Authorized Specialty Diagnoses / Procedures Referred By Henri saunders Referred To Contact Radiology Diagnoses Bronchospasm Cigarette smoker Procedures CT Chest Lung Cancer Screening Initial Or Annual Valente Curry MD [address] [place], [place] Phone: tel: fax: [email or web address] Referral ID Status Reason Start Date Expiration Date V isits Requested Visits Authorized [id number] Authorized 12/28/2024 1 1 Reason for Visit * Reason Comments Follow-up 6 month f/u Encounter Details Date Type Department Care Team (Latest Contact Info) Description 12/28/2024 4:00 PM EDT Office Visit [facility] [place] [facility] [address] [place], [place] [phone] Valente Curry MD [address] [place], [place] [email or web address] Essential hypertension (Primary Dx); Bronchospasm; Palpitations; Type 2 diabetes mellitus with diabetic polyneuropathy, without long-term current use of insulin; Acquired hypothyroidism; Class 1 obesity due to excess calories with serious comorbidity and body mass index (BMI) of 33.0 to 33.9 in adult; Cigarette smoker; Age-related osteoporosis without current pathological fracture; Cervicalgia Social History Tobacco Use Types Packs/Day Years Used Date Smoking Tobacco: Every Day Cigarettes 0.5 56.7 Started: 1966 Smokeless Tobacco: Never Comments:1ppd for 27 years a nd 1/2 pack for 26 years 15 cigarettes QD-11/25/24 Alcohol Use Standard Drinks/Week Comments Never 0 (1 standard drink = 0.6 oz pur e alcohol) Education Answer Date Recorded Are you interested in more education? Not on shayan e 08/29/2022 Are you concerned about learning? Not on file 08/29/2022 No 08/29/2022 No 08/29/2022 Digital Access Answer Date Recorded No 09/29/2022 No 09/29/2022 Reliable internet access at home? Not on file 09/29/2022 Device with a working camera? Not on file Intimate Partner Violence Answer Date R ecorded Denied Basic Needs Not on file 06/29/2024 In the past 12 months have y ou been in a relationship with a person who hurts, threatens, or tries to control you? No 06/29/2024 Worried food would run out Not on file 06/29 In the past 12 months have y ou been in a relationship with a person who hurts, threatens, or tries to control you? No 06/29/2024 Comments No Sex and Gender Information Value Date Recorded Sex Assigned at Female 10/18/2021 1:34 PM EDT Legal Sex Female 9:59 PM EDT Gender Identity Female 10/18/2021 1:34 PM EDT Sexual Orientation Straight 10/18/2021 1: 34 PM EDT documented as of this encounter Last Filed Vital Signs Vital Sign Reading Time Taken Comments Blood Pressure 154/55 12/28/2024 4:17 PM EDT Pulse 59 12/28/2024 4:17 PM EDT Temperature 35.9 C (96.7 F) 12/28/2024 4:17 PM EDT Respiratory Rate - - Oxygen Saturation 98% 12/28/2024 4:17 PM EDT Inhaled Oxygen Concentration - - Weight 89.5 kg (197 lb 4.8 oz) 12/28/2024 4:17 P M EDT Height 163.9 cm (5' 4.53 ) 12/28/2024 4:17 PM ED T Body Mass Index 33.31 12/28/2024 4:17 PM EDT documented in this encounter Progress Notes * Valente Curry MD - 12/28/2024 4:00 PM EDT Subjective Toyin Sprague is a 74 y.o. female. History of Present Illness Toyin Sprague is a 74 year old female with hypertension and osteoporosis who presents with neck pain and medication refill requests. She experiences significant neck cracking and pain, which sometimes radiates down her legs. The pain occurs with certain neck movements and can last from thirty seconds to a minute. She is concerned about the possibility of waking up paralyzed due to these neck issues. She uses an albuterol inhaler once a month for respiratory issues and recalls a pulmonary function test in 2021 indicating emphysema. She smokes about three- quarters of a pack of cigarettes daily andhas done so since she was [age], totaling approximately fifty-five years of smoking. She has a history of sinus infections occurring approximately once every three years and was previously prescribed Zithromax by a holistic doctor for a sinus infection. She recently underwent a Reclast infusion for osteoporosis, which resulted in a fever and nausea that resolved by the following Thursday. She has a history of a bone density test indicating osteoporosis and a past fracture of her arm. She is currently taking diltiazem 120 mg twice daily and atenolol, but she often finds the atenololpill on the floor. She also takes glipizide for diabetes management. She had a mammogram earlier today and reports a history of being called back multiple times for additional imaging in the past. 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 She is planning to take some time off around Labor Day and has friends who are nurses. Current Outpatient Medications Ordered in [facility] Medication Sig acetaminophen (TYLENOL) 500 MG tablet Take 1,000 mg by mouth daily as needed for pain (specific location in comments). atenolol (TENORMIN) 50 mg tablet TAKE ONE TABLET BY MOUTH EVERY DAY blood-glucose meter kit Use as instructed to test blood sugars up to three times a day. Please dispense a Reli-On Prime Meter. cholecalciferol (VITAMIN D3) 25 MCG (1,000 unit) tablet Take 1 gummies (1000 units) by mouth daily. gabapentin (NEURONTIN) 300 MG capsule TAKE THREE CAPSULES BY MOUTH EVERY EVENING AT BEDTIME glipiZIDE (GLUCOTROL XL) 5 MG 24 hr tablet take one tablet by mouth twice a day HYDROcodone-acetaminophen (NORCO) 5-325 mg per tablet Take 1 tablet by mouth every 8 (eight) hours as needed for pain (specific location in comments) (low back pain and right arn fracture). Partial fill ok levothyroxine (SYNTHROID, LEVOTHROID) 175 MCG tablet take one tablet by mouth every day in the morning meclizine (ANTIVERT) 25 mg tablet Take 1 tablet (25 mg total) by mouth 4 (four) times a day as needed. metFORMIN (GLUCOPHAGE-XR) 500 MG 24 hr tablet TAKE TWO TABLETS BY MOUTH TWICE A DAY WITH MEALS pantoprazole (PROTONIX) 40 MG tablet TAKE ONE TABLET BY MOUTH EVERY DAY pravastatin (PRAVACHOL) 40 MG tablet take one tablet by mouth every day prochlorperazine (COMPAZINE) 10 MG tablet Take 1 tablet (10 mg total) by mouth every 6 (six) hours as needed (Nausea). albuterol 90 mcg/actuation inhaler Inhale 2 puffs into the lungs every 6 (six) hours as needed for wheezing. dilTIAZem (CARDIZEM) 120 MG immediate release tablet Take 1 tablet (120 mg total) by mouth 3 (three) times a day. Review of Systems Denies headaches/chest pains Objective Physical Exam BP (!) 154/55 (BP Location: Right arm, Patient Position: Sitting, Cuff Size: Medium) Pulse (!) 59 Temp 35.9 ??C (96.7 ??F) (Temporal) Ht 163.9 cm (5' 4.53 ) Wt 89.5 kg (197 lb 4.8 oz) SpO2 98% BMI 33.31 kg/m?? MEASUREMENTS: Weight- 33.31. HEENT:PERRTL, EOM intact, fundi benign, TM's clear, throat clear. NECK: supple, no thyroid megaly, no adenopathy. LUNGS: clear to A&P,no wheezing/rhonichi/rales. HEART: RRR S1S2 without murmurs, rubs or gallops. ABDOMEN: bowel sounds: normal, soft non tender without masses. EXTREMITIES: without edema, clubbing or cyanosis. Assessment & Plan Essential hypertension Blood pressure elevated. No home monitoring available. - Increase diltiazem to 240 mg in the morning and 120 mg in the evening until current supply is used up. - Switch to 180 mg twice a day after current supply is exhausted. - Have blood pressure checked by a nurse friend during cookout. - Follow up with blood pressure readings before refilling prescription. Type 2 diabetes mellitus with diabetic polyneuropathy A1c 6.7, well-controlled diabetes. No new polyneuropathy symptoms. Cervicalgia Intermittent neck pain with cracking sounds, exacerbated by movement. Pain radiates to ribs. No severe neurological deficits. - Use a heating pad to alleviate neck pain. - Consider physical therapy if symptoms persist. Age-related osteoporosis without current pathological fracture Osteoporosis confirmed by bone density scan. Recent Reclast infusion with transient fever and nausea. No new fractures. Nicotine dependence, cigarettes Continues smoking half to three-quarters of a pack per day for 55 years. No plans to quit. I obtained verbal consent from the patient or their proxy to record this visit for purposes of producing a draft of the encounter documentation. documented in this encounter Plan of Treatment Upcoming Encounters Date Type Department Care Team (Late st Contact Info) Description 07/07/2025 2:30 PM EST Office Visit [facility] Internal Medicine [address] [place] [address] Valente Curry MD [address] [place] [address] [email or web address] Scheduled Orders Name Type Priority Associated Diagnoses Orde r Schedule CT Chest Lung Cancer Screening Initial Or Annual Imaging Routine Bronchospasm Cigarette smoker Expected: 02/24/2025, Expires: 09/27/2025 25-OH vitamin D Lab Routine Age-related osteoporosis without current pathological fracture Expected: 12/28/2024, Expires: 12/28/2025 Comprehensive metabolic panel Lab Routine Essential hypertension Expected: 12/28/2024, Expires: 12/28/2025 CBC and differential Lab Routine Essential hypertension Expected: 12/28/2024, Expires: 12/28/2025 TSH with reflex Lab Routine Acquired hypothyroidism Expected: 12/28/2024, Expires: 12/28/2025 Lipid panel Lab Routine Type 2 diabetes mellitus with diabetic polyneuropathy, without long-term current use of insulin Expected: 12/28/2024, Expires: 12/28/2025 documented as of this encounter Visit Diagnoses Diagnosis Essential hypertension- Primary Unspecified essential hypertension Bronchospasm Acute bronchospasm Palpitations Type 2 diabetes mellitus with diabetic polyneuropathy, without long-term current use of insulin Acquired hypothyroidism Unspecified hypothyroidism Class 1 obesity due to excess calories with serious comorbidity and body mass index (BMI) of 33.0 to 33.9 in adult Cigarette smoker Tobacco use disorder Age-related osteoporosis without current pathological fracture Cervicalgia documented in this encounter Additional Health Concerns Assessment Noted Time PHQ-2 Depression Total Score: 0 06/29/19 25 10:00 PM EST documented as of this encounter Care Teams Rubber Block Layer Relationship Specialty Start Date End Date Valente Curry MD [address] [place] [address] [email or web address] PCP - General 02/19/17 Juan Luis Mcnamara MD [address] [place] [address] [place] [address] Ophthalmology 10/10/19 Valente Curry MD [address] [place] [address] [email or web address] Insurance Assigned Provider 08/08/23 documented as of this encounter Additional Source Comments The information contained in this document represents components of the legal health record. It is not the complete legal health record.[facility]
[2024-12-30 08:35] LABS: MANUAL DIFF FLAG NO
--- OUTSIDE RECORDS SUMMARY | 2024-12-30 09:08 | XMS_ITS | Encounter Summary ---
Author Organization [facility] Address [address] [place] [address] Phone Care Team Providers Care Unified Communications Architect Name Role Phone Valente Curry MD Primary Care Provider Valente Curry MD Unavailable [phone] Shira Roe INLAYER Unavailable Alea Bonilla INLAYER Unavailable [phone] Fariha Ann INLAYER Unavailable [phone] Valente Curry MD Unavailable [phone] Juan Luis Mcnamara MD Unavailable Valente Curry MD Unavailable [phone] Encounter Details Date Type Department Care Team (Late st Contact Info) Description 11/30/2017 Procedure Pass [facility], [address] [place] [address] Social History Tobacco Use Types Packs/Day Years Used Date Smoking Tobacco: Every Day Cigarettes 0.5 8 Smokeless Tobacco: Never Alcohol Use Standard Drinks/Week Comments No 0 (1 standard drink = 0.6 oz pur e alcohol) Comments Unknown Sex and Gender Information Value Date Recorded Sex Assigned at Female 10/18/2021 1:34 PM EDT Legal Sex Female 9:59 PM EDT Gender Identity Female 10/18/2021 1:34 PM EDT Sexual Orientation Straight 10/18/2021 1: 34 PM EDT documented as of this encounter Plan of Treatment Upcoming Encounters Date Type Department Care Team (Late st Contact Info) Description 07/07/2025 2:30 PM EST Office Visit [facility] Internal Medicine [address] [place] [address] Valente Curry MD [address] [place] [address] [email or web address] documented as of this encounter Visit Diagnoses Not on filedocumented in this encounter Additional Health Concerns Infection Onset Date Last Indicated Resolved Time CoV-Risk 07/26/2020 07/26/2020 08/05/2020 1:24 AM EDT CoV-Risk 09/30/2023 09/30/2023 10/11/2023 1:21 AM EDT CoV-Risk 05/03/2024 05/03/2024 05/03/2024 10:2 4 AM EST COVID-19 05/03/2024 05/03/2024 05/24/2024 1:21 AM EST Assessment Noted Time PHQ-2 Depression Total Score: 0 04/30/20 17 8:51 AM EST documented as of this encounter Care Teams Unified Communications Architect Relationship Specialty Start Date End Date Valente Curry MD [address] [place] [address] PCP - General 02/19/17 Valente Curry MD [address] [place] [address] Historical LMR Provider 02/21/17 07/25/20 Shira Roe NP [address] [place] [address] Historical LMR Provider 02/21/17 Alea Bonilla NP [address] [place] [phone] Historical LMR Provider 02/21/17 Fariha Ann NP [address] [facility] [address] [place] [address] Historical LMR Provider 02/21/17 07/25/20 Valente Curry MD [address] [place] [address] [email or web address] Insurance Assigned Provider 07/08/1907/25 Juan Luis Mcnamara MD [address] [place] [address] [place] [address] Ophthalmology 10/10/19 Valente Curry MD [address] [place] [address] [email or web address] Insurance Assigned Provider 08/08/23 documented as of this encounter Additional Source Comments The information contained in this document represents components of the legal health record. It is not the complete legal health record.[facility]
--- OUTSIDE RECORDS SUMMARY | 2024-12-30 09:08 | XMS_ITS | Encounter Summary ---
Author Organization [facility] Address [address] [place] [address] Phone Care Team Providers Care Health Science Writer Name Role Phone Valente Curry MD Primary Care Provider [phone] Juan Luis Mcnamara MD Unavailable Valente Curry MD Unavailable [phone] Encounter Details Date Type Department Care Team (Late st Contact Info) Description 12/28/2024 Orders Only [facility] [place] [facility] [address] [place] [address] Provider, MD More[place] [facility], [facility]–[address] [place] [address] Social History Tobacco Use Types Packs/Day Years [...] Description 07/07/2025 2:30 PM EST Office Visit [facility] Internal Medicine [address] [place] [address] Valente Curry MD [address] [place] [address] [email or web address] documented as of this encounter Procedures Procedure Name Priority Date/Time Associated Diagnosis Comments MAMMOGRAPHY Routine 12/28/2024 4:24 PM EDT documented in this encounter Results * HM MAMMOGRAPHY FOR RESULT ENTRY ONLY (12/28/2024 4:24 PM EDT) us Historical Provider HEALTH MAINTENANCE Final Result documented in this encounter Visit Diagnoses Not on filedocumented in this encounter Additional Health Concerns Assessment Noted Time PHQ-2 Depression Total Score: 0 06/29/19 25 10:00 PM EST documented as of this encounter Care Teams Health Science Writer Relationship Specialty Start Date End Date Valente Curry MD [address] [place] [address] [email or web address] PCP - General 02/19/17 Juan Luis Mcnamara MD [address] [place] [address] [place] [address] Ophthalmology 10/10/19 Valente Curry MD [address] [place] [address] [email or web address] Insurance Assigned Provider 08/08/23 documented as of this encounter Additional Source Comments The information contained in this document represents components of the legal health record. It is not the complete legal health record.[facility]
--- OUTSIDE RECORDS SUMMARY | 2024-12-30 09:08 | XMS_ITS | Encounter Summary ---
Author Organization [facility] Address [address] [address] Phone Care Team Providers Care Twx Operator Name Role Phone Valente Curry MD Primary Care Provider [phone] Juan Luis Mcnamara MD Unavailable Valente Curry MD Unavailable [phone] Encounter Details Date Type Department Care Team (Late st Contact Info) Description 10/30/2022 Procedure Pass [facility], Ct Scan - [address] [address] Social History Tobacco Use Types Packs/Day Years Used Date Smoking Tobacco: Every Day Cigarettes 0.5 56.7 Started: 1966 Smokeless Tobacco: Never Comments:1ppd for 27 years a nd 1/2 pack for 28 years 14-15 cigarettes QD-noted 12/12/22 Alcohol Use Standard Drinks/Week Comments Never 0 [...] with a working camera? Not on file Comments No Sex and Gender Information Value [...] Description 07/07/2025 2:30 PM EST Office Visit [facility] Internal Medicine [address] [place], [place] [phone] Valente Curry MD [address] [place] [address] documented as of this encounter Visit Diagnoses Not on filedocumented in this encounter Additional Health Concerns Infection Onset Date Last Indicated Resolved Time CoV-Risk 09/30/2023 09/30/2023 10/11/2023 1:21 AM EDT CoV-Risk 05/03/2024 05/03/2024 05/03/2024 10:2 4 AM EST COVID-19 05/03/2024 05/03/2024 05/24/2024 1:21 AM EST Assessment Noted Time PHQ-2 Depression Total Score: 0 05/23/19 23 12:50 PM EST documented as of this encounter Care Teams Twx Operator Relationship Specialty Start Date End Date Valente Curry MD [address] [place] [address] PCP - General 02/19/17 Juan Luis Mcnamara MD [address] [place] [address] [place] [address] Ophthalmology 10/10/19 Valente Curry MD [address] [place] [address] Insurance Assigned Provider 08/08/23 documented as of this encounter Additional Source Comments The information contained in this document represents components of the legal health record. It is not the complete legal health record.[facility]
--- OUTSIDE RECORDS SUMMARY | 2024-12-30 09:09 | XMS_ITS | Clinical Summary ---
Author Organization [facility] Address [address] [place] [address] Care Team Providers Care Group Home Counselor Name Role Phone Valente Curry MD Primary Care Provider [phone] Medical History Medical History Date Comments Dyspnea on exertion DX:Dyspnea o n exertion; COMMENT: mild Hypothyroidism DX:Hypothyroidis m Diabetes mellitus, type II ( CMS/HCC V24, CMS/HCC V28) DX:Diabetes mellitus, type I I ([facility]) Social History Tobacco Use Types Packs/Day Years Used Date Smoking Tobacco: Every Day Cigarettes 0.5 28.7 Started: 05/04/1996 Smokeless Tobacco: Never Alcohol Use Standard Drinks/Week Comments Never 0 (1 standard drink = 0.6 oz pur e alcohol) Comments Unknown Sex and Gender Information Value Date Recorded Sex Assigned at Not on file Legal Sex Female 1:57 PM EST Gender Identity Not on file Sexual Orientation Not on file Obstetrics History Last Filed Vital Signs Vital Sign Reading Time Taken Comments Blood Pressure 130/70 01/22/2024 3:42 PM EDT Sit ting R Arm Pulse 58 01/22/2024 3:42 PM EDT Temperature - - Respiratory Rate - - Oxygen Saturation - - Inhaled Oxygen Concentration - - Weight 88 kg (194 lb) 01/22/2024 3:42 PM EDT Height 162.6 cm (5' 4 ) 01/22/2024 3:42 PM EDT Body Mass Index 33.3 01/22/2024 3:42 PM EDT Plan of Treatment Upcoming Encounters Date Type Department Care Team (Late st Contact Info) Description 02/06/2025 2:30 PM EDT Office Visit [facility] [address] [facility] [address] [place] [phone] Seymour Lebron MD [address] [place] [address] Dr [address] [place] [phone] Health Maintenance Due Date Last Done Comments Breast Cancer Screening 1952 Diabetes: Annual GFR (Glomerular Filtration Rate) 1952 Diabetes: Annual Foot Exam 1962 Diabetes: Annual Retina Eye Exam 1962 DTaP,Tdap,and Td Vaccines (1 - Tdap) 1971 Zoster Vaccines (1 of 2) 2002 Cholesterol Screening (Lipid Panel) 04/13/2022 Falls Risk Assessment 04/13/2022 Hepatitis C Screening 04/13/2022 Hypertension/CHF/CAD Annual BMP Blood Test 04/13/2022 Osteoporosis Screening (Bone Density Screening) 04/13/2022 Social Influencers of Health Screening 04/13/2022 Diabetes: Annual Urine Albumin-Creatinine Ratio (uACR) 04/18/2022 Diabetes: Blood Sugar Contro l Test (HGBA1C) 04/18/2022 Medicare Annual Wellness Visit 05/23/2023 05/23/2022 COVID-19 Vaccine (1 - 2023-2 5 season) 2024 Depression Screening 05/04/2024 Influenza Vaccine (#1) 2025 RSV Immunization Adult Patients (1 - 1-dose 75+ series) 2027 Colorectal Cancer Screening: Colonoscopy 06/22/2034 06/22/2024 Pneumococcal Vaccine: 50+ Years Completed 02/04/2019, 01/29/2018 HIB Vaccines Aged Out No longer eligi ble based on patient's age to complete this topic HPV Vaccines Aged Out No longer eligi ble based on patient's age to complete this topic Hepatitis A Vaccines Aged Out No long er eligible based on patient's age to complete this topic Hepatitis B Vaccines Aged Out No long er eligible based on patient's age to complete this topic IPV Vaccines Aged Out No longer eligi ble based on patient's age to complete this topic MMR Vaccines Aged Out No longer eligi ble based on patient's age to complete this topic Meningococcal ACWY Vaccine Aged Out N o longer eligible based on patient's age to complete this topic Meningococcal B Vaccine Aged Out No l onger eligible based on patient's age to complete this topic RSV Immunization Patients Under 20 months Aged Out No longer eligible b ased on patient's age to complete this topic Varicella Vaccines Aged Out No longer eligible based on patient's age to complete this topic Procedures Procedure Name Priority Date/Time Associated Diagnosis Comments EXTERNAL COLONOSCOPY REPORT Routine 06/22/2024 10:29 AM EST from Last 3 Months or Most Recently Relevant to Health Maintenance Results * External Colonoscopy Report (06/22/2024 10:29 AM EST) Anatomical Region Laterality Modality Endoscopy us Historical Provider GI~PROCEDURE ORDERABLES F inal Result from Last 3 Months or Most Recently Relevant to Health Maintenance Insurance MEDICARE [facility] Care Teams Group Home Counselor Relationship Specialty Start Date End Date Valente Curry MD [address] [place] [address] PCP - General 09/22/14
--- OUTSIDE RECORDS SUMMARY | 2024-12-30 09:09 | XMS_ITS | Clinical Summary ---
Author Organization [facility] Address [address] [place] [address] Phone Care Team Providers Care Drawing Supervisor Name Role Phone Valente Curry MD Primary Care Provider [phone] Juan Luis Mcnamara MD Unavailable [phone] Valente Curry MD Unavailable Allergies Active Allergy Reactions Criticality Noted Date Comments Adhesive Rash with Blisters High 05/16/2021 bandaids and paper tape Doxycycline Swelling High 01/18/2021 Influenza Vacc Tri-Spl 2009-11 02/07/2020 Dyspnea and arm rash Lisinopril Other (See Comments) 04/30/2017 fatigue Other 08/15/2019 Sun- prickly rash Penicillins Nausea and/or Vomiting 04/30/2017 Medications blood-glucose meter kitIndications:Type 2 diabetes mellitus without complications Use as instructed to test blood sugars up to three times a day. Please dispense a Reli-On Prime Meter. 1 each 020 Active acetaminophen (TYLENOL) 500 MG tablet Take 1,000 mg by mouth daily as needed for pain (specific location in comments). Active cholecalciferol (VITAMIN D3) 25 MCG (1,000 unit) tablet Take 1 gummies (1000 units) by mouth daily. Active prochlorperazine (COMPAZINE) 10 MG tabletIndications:Naus ea Take 1 tablet (10 mg total) by mouth every 6 (six) hours as needed (Nausea). 40 tablet 1 023 Active meclizine (ANTIVERT) 25 mg tabletIndications:Vert igo Take 1 tablet (25 mg total) by mouth 4 (four) times a day as needed. 30 tablet 3 Active HYDROcodone-acetaminop hen (NORCO) 5-325 mg per tabletIndications:Photo Specialist jt right-sided low back pain without sciatica Take 1 tablet by mouth every 8 (eight) hours as needed for pain (specific location in comments) (low back pain and right arn fracture). Partial fill ok 20 tablet Active glipiZIDE (GLUCOTROL XL) 5 MG 24 hr tabletIndications:Type 2 diabetes mellitus with hyperglycemia, without long-term current use of insulin take one tablet by mouth twice a day 180 tablet 3 024 Active pravastatin (PRAVACHOL) 40 MG tabletIndications:Pure hypercholesterolemia take one tablet by mouth every day 90 tablet 3 024 Active levothyroxine (SYNTHROID, LEVOTHROID) 175 MCG tabletIndications:Acqu ired hypothyroidism take one tablet by mouth every day in the morning 90 tablet 3 024 Active atenolol (TENORMIN) 50 mg tabletIndications:Esse ntial hypertension TAKE ONE TABLET BY MOUTH EVERY DAY 90 tablet 3 025 Active metFORMIN (GLUCOPHAGE-XR) 500 MG 24 hr tabletIndications:Type 2 diabetes mellitus with hyperglycemia, without long-term current use of insulin TAKE TWO TABLETS BY MOUTH TWICE A DAY WITH MEALS 360 tablet 3 025 Active gabapentin (NEURONTIN) 300 MG capsule TAKE THREE CAPSULES BY MOUTH EVERY EVENING AT BEDTIME 90 capsule 11 025 Active pantoprazole (PROTONIX) 40 MG tabletIndications:Naus ea,Epigastric pain TAKE ONE TABLET BY MOUTH EVERY DAY 90 tablet 3 025 Active albuterol 90 mcg/actuation inhalerIndications:Bro nchospasm Inhale 2 puffs into the lungs every 6 (six) hours as needed for wheezing. 8 g 5 025 Active dilTIAZem (CARDIZEM) 120 MG immediate release tablet Take 1 tablet (120 mg total) by mouth 3 (three) times a day. 025 Active pantoprazole (PROTONIX) 40 MG tabletIndications:Naus ea,Epigastric pain take one tablet by mouth every day 90 tablet 3 024 12/15 Discontinued albuterol 90 mcg/actuation inhalerIndications:Bro nchospasm Inhale 2 puffs into the lungs every 6 (six) hours as needed for wheezing. 8 g 5 025 12/28 Discontinued( Reorder) dilTIAZem (CARDIZEM) 120 MG immediate release tabletIndications:Palp itations TAKE ONE TABLET BY MOUTH TWICE A DAY 60 tablet 11 025 12/28 Discontinued azithromycin (ZITHROMAX) 500 MG tabletIndications:Acut e non-recurrent frontal sinusitis Take 1 tablet (500 mg total) by mouth daily. 5 tablet 025 12/28 Discontinued Active Problems Problem Noted Date Diagnosed Date Acute non-recurrent frontal sinusitis 11/25/2024 Assessment & Plan (11/25/2024 4:30 PM EDT): Most likely a sinus infection affecting frontal and maxillary sinuses exacerbated by tobacco abuse habit. Sounds bacterial from the nasal discharge she is describing, azithromycin 500 mg daily for 5 days prescribed. Patient will use the inhaler to help with the wheeziness if it worsens her breathing then we can call in prednisone if needed. Particularly nasal saline can be helpful at clearing up the phlegm I explained to her but also hot showers with steam breaking up phlegm as well. COVID-19 05/03/2024 Assessment & Plan (05/03/2024 12:25 PM EST): Discussed results, course of infection. She prefers to avoid CXR at this time as symptoms are mild. Will call if not improving by 05/06/24, or if any worsening sx in the interim. Will continue good hydration, rest. Work note given to return 05/09/24. Lightheadedness 05/03/2024 Assessment & Plan (05/03/2024 12:25 PM EST): Check labs. Ongoing, chronic issue impacted by vertigo. Loose stools 05/03/2024 Assessment & Plan (05/03/2024 12:26 PM EST): Potentially due to Covid-19 infection vs. Recent course of antibiotics. Will continue to slowly advance diet History of diagnostic mammography 01/20/2024 Overview (01/28/2024): Had mammo done birad 0, need dx right right Dx done 01/06/24 birad 2 annual mammogram screening recommenced pt aware in note in chart had right dx, birad 2, pt notified by letter Loss of taste 09/30/2023 Assessment & Plan (09/30/2023 3:52 PM EDT): Could be due to seasonal allergies as well as previous positive COVID. Patient currently states that the only other symptom she has is nasal discharge. -Continue allergy medication daily -In-house COVID/influenza/RSV is negative patient called with results -Patient advised that if no improvement in her symptoms in a couple weeks to reach out for further evaluation. Benign paroxysmal positional vertigo 12/11/2021 Assessment & Plan (12/11/2021 11:14 AM EDT): The patient's symptoms are consistent with benign positional vertigo. As this is already the second time that she has had it we will refer the patient to physical therapy to learn the Kushal and Union maneuvers. Also givers some educational material to look up on the portal or after the visit. Obesity, Class II, BMI 35-39.9 08/31/2020 Tendinitis of right hip 01/06/2019 Trochanteric bursitis of right hip 11/23/2018 Lumbar radiculopathy 12/26/2017 Myalgia 12/26/2017 Spinal stenosis, lumbar adalid on, without neurogenic claudication 12/26/2017 Acquired hypothyroidism 04/30/2017 Anxiety 04/30/2017 Essential hypertension 04/30/2017 Osteoarthritis of lumbar spine 04/30/2017 Palpitations 04/30/2017 Pure hypercholesterolemia 04/30/2017 Type 2 diabetes mellitus wit h diabetic polyneuropathy, without long-term current use of insulin 04/30/2017 Hyperlipidemia Resolved Problems Problem Noted Date Diagnosed Date Resolved Date Claudication 07/26/2020 05/20/2021 Sacroiliitis, not elsewhere classified 12/26/2017 05/20/2021 Encounters Date Type Department Care Team Description 12/28/2024 4:00 PM EDT Office Visit [facility] Internal Medicine [address] [facility] [place] [address] Valente Curry MD Essential hypertension (Primary Dx); Bronchospasm; Palpitations; Type 2 diabetes mellitus with diabetic polyneuropathy, without long-term current use of insulin; Acquired hypothyroidism; Class 1 obesity due to excess calories with serious comorbidity and body mass index (BMI) of 33.0 to 33.9 in adult; Cigarette smoker; Age-related osteoporosis without current pathological fracture; Cervicalgia 12/28/2024 Orders Only [facility] Internal Medicine [address] [facility] [place] [address] Morena Mcconnell MD 12/26/2024 Orders Only [facility] Internal Medicine [address] [facility] [place] [address] Morena Mcconnell MD 12/15/2024 Refill [facility] Internal [facility] [address] [facility] [place] [address] Valente Curry MD Medication Refill 11/25/2024 4:00 PM EDT Office Visit [facility] Internal [facility] [address] [facility] [place] [address] Arthur Chaudhary MD Acute non-recurrent frontal sinusitis (Primary Dx) 11/25/2024 Telephone [facility] Internal Medicine [address] [facility] [place] [address] Valente Curry MD Sinus Infection 10/04/2024 Telephone [facility] Internal [facility] [address] [place] [address] Valente Curry MD Forms & Paperwork from Last 3 Months Immunizations Immunization Administration Dates Next Due COVID-19 (Pre-02/23) Moderna Vaccine, mRNA, PF 03/22/2021,06/21/2020,05/25/2020 Pneumococcal conjugate PCV13 01/29/2018 Pneumococcal polysaccharide PPSV23 02/04/2019, Td, unspecified formulation 10/02/2001 Tdap 03/14/2024,08/05/2011 Zoster recombinant 06/28/2022 Family History Medical History Relation Comments Diabetes Father Liver disease Father Breast cancer Half-Sister Diabetes Mother Heart disease Mother Heart failure Mother Hypertension Mother Kidney disease Mother Thyroid disease Mother Diabetes Sister 1 Hypertension Sister 1 Polio Sister 1 Diabetes Sister 2 Relation Status Comments Father (Age 81) Half-Sister Mother (Age 83) Sister 1 Alive mobility issues Sister 2 Alive Social History Tobacco Use Types Packs/Day Years Used Date Smoking Tobacco: Every Day Cigarettes 0.5 56.7 Started: 1966 Smokeless Tobacco: Never Tobacco Cessation:Ready to Q uit: Not Asked; Counseling Given: Not Answered Comments:1ppd for 27 years and 1/2 pack for 26 years 15 cigarettes [...] Orientation Straight 10/18/2021 1: 34 PM EDT Last Filed Vital Signs Vital Sign Reading Time Taken Comments Blood Pressure 154/55 12/28/2024 4:17 PM EDT Pulse 59 12/28/2024 4:17 PM EDT Temperature 35.9 C (96.7 F) 12/28/2024 4:17 PM EDT Respiratory Rate 16 06/30/2024 12:51 PM EST Oxygen Saturation 98% 12/28/2024 4:17 PM EDT Inhaled Oxygen Concentration - - Weight 89.5 kg (197 lb 4.8 oz) 12/28/2024 4:17 P M EDT Height 163.9 cm (5' 4.53 ) 12/28/2024 4:17 PM ED T Body Mass Index 33.31 12/28/2024 4:17 PM EDT Plan of Treatment Upcoming Encounters Date Type Department Care Team (Late st Contact Info) Description 07/07/2025 2:30 PM EST Office Visit [facility] Internal Medicine [address] [place] [address] Valente Curry MD [address] [place] [address] [email or web address] Health Maintenance Due Date Last Done Comments COLOGUARD 1997 FIT TEST 1997 FOBT 1997 SIGMOIDOSCOPY 1997 VIRTUAL COLONOSCOPY 1997 RSV VACCINE (1 - Risk 60-74 years 1-dose series) 2012 ZOSTER VACCINES (2 of 2) 08/23/2022 06/28/2022 DIABETIC EYE EXAM 12/06/2022 12/06/2021, , 11/29/2019, Additional history exists COVID-19 VACCINE ( season) 2024 02/09/2022, 08/05/2021, 03/22/2021, Additional history exists TSH LEVEL 11/26/2024 11/27/2023, 06/0 09/2022, 05/23/2022, Additional history exists URINE MICROALBUMIN/CREATININE RATIO 11/26/2024 11/27/2023, 11/27/2023, 12/10/2022, Additional history exists HEMOGLOBIN A1C 12/23/2024 06/25/2024, 11/02, 11/27/2023, Additional history exists LUNG CANCER SCREENING (LDCT Only) 02/23/2025 02/24/2024, 01/15/2023 CREATININE LEVEL 06/25/2025 06/25/2024, , 12/10/2022, Additional history exists DEPRESSION SCREENING 06/29/2025 06/29/2024 BLOOD PRESSURE 06/30/2025 12/28/2024 SMOKING Hx and SMOKELESS TOBACCO SCREENING 12/28/2025 12/28/2024 COLONOSCOPY 08/06/2026 08/06/2016 COLORECTAL CANCER SCREENING 08/06/2026 MAMMOGRAM 12/28/2026 12/28/2024, 08/2023, 12/26/2023, Additional history exists Adult Td,Tdap Booster 03/14/2034 03/14/2024 , 08/05/2011, 10/02/2001 PNEUMOCOCCAL VACCINES (50+ years) Completed 02/04/2019, 01/29/2018, 04/03/2009 HEPATITIS C SCREENING Completed 10/05/2019, 020 OSTEOPOROSIS SCREENING INITIAL (ONE-TIME) Completed 01/01/2024, 06/05/2023, 10/30/2021, Additional history exists HEPATITIS A VACCINES Aged Out No long er eligible based on patient's age to complete this topic HIB VACCINES Aged Out No longer eligi ble based on patient's age to complete this topic MENINGOCOCCAL VACCINES (ACWY) Aged Out No longer eligible based on patient's age to complete this topic MENINGOCOCCAL VACCINES (B) Aged Out N o longer eligible based on patient's age to complete this topic Medical Devices Not on file Procedures Procedure Name Priority Date/Time Associated Diagnosis Comments HM MAMMOGRAPHY Routine 12/28/2024 4:24 PM EDT HEMOGLOBIN A1C Routine 12/23/2024 2:17 PM EDT OUTSIDE HEMOGLOBIN A1C Routine 06/25/2024 OUTSIDE SERUM CREATININE LEVEL Routine 06/25/2024 CT CHEST LUNG CANCER SCREENING ANNUAL Routine 02/24/2024 1:09 PM EDT Cigarette smoker HM DEXA SCAN Routine 01/01/2024 3:45 PM EDT MICROALBUMIN/CREATI NINE RATIO, RANDOM URINE Routine 11/27/2023 Type 2 diabetes mellitus with diabetic polyneuropathy, without long-term current use of insulin TSH Routine 11/27/2023 Acquired hypothyroidism DIABETES EYE EXAM FOR RESULT ENTRY ONLY Routine 12/06/2021 10:25 AM EDT OUTSIDE HEPATITIS C VIRUS SCREENING Routine 10/05/2019 COLONOSCOPY FOR RESULT ENTRY ONLY Routine 08/06/2016 from Last 3 Months or Most Recently Relevant to Health Maintenance Results * MAMMOGRAPHY FOR RESULT ENTRY ONLY (12/28/2024 4:24 PM EDT) [facility] Provider HEALTH MAINTENANCE Final Result * Hemoglobin A1c (12/23/2024 2:17 PM EDT) [facility] Provider LAB BLOOD ORDERABLES Marie l Result * Outside HbA1c (06/25/2024) Hemoglobin A1c - External 6.5 % EXTERNAL NON-INTERFACED REF LAB Result [facility] Provider LAB BLOOD ORDERABLES Marie l Result EXTERNAL NON-INTERFACED REF LAB * (ABNORMAL) Outside Serum Creatinine Level (06/25/2024) Creatinine, serum - External 0.74(A) 0.8 - 1.3 mg/dL EXTERNAL NON-INTERFACED REF LAB [facility] Provider LAB BLOOD ORDERABLES Marie l Result EXTERNAL NON-INTERFACED REF LAB * CT CHEST LUNG CANCER SCREENING ANNUAL (02/24/2024 1:09 PM EDT) Anatomical Region Laterality Modality Chest Computed Tomogra phy 02/29/2024 10:3 2 AM EDT Impressions 02/29/2024 10:40 AM EDT Lung-RADS Category: 2. Multiple pulmonary nodules. The category-determining nodule has a very low likelihood of becoming a clinically active cancer, due to size and/or lack of growth. RECOMMENDATIONS: Continue Lung-RADS Annual Lung Cancer Screening Chest CT in 12-14 months if patient meets eligibility criteria. To order, please type CT CHEST SCREENING (CT.[email or web address]) and select ANNUAL for patient program status. Explanation of the Lung-RADS categories can be found at: [email or web address] Narrative 02/29/2024 10:[address] CHEST LUNG CANCER SCREENING ANNUAL Referring clinician's provided indication for this examination in [facility]: Lung Cancer Screening - CURRENT smoker (20+ pk-yrs, age 50-80) - ICD -10 F17.210 TECHNIQUE: Low dose multidetector CT of the chest was performed without intravenous contrast using tailored dose modulation techniques. COMPARISON: CT CHEST LUNG CANCER SCREENING INITIAL 2022- FINDINGS: Devices/Tubes/Lines: None. Lungs: Unchanged lung nodules including a 6 mm round glass left upper lobe nodule (5:140), an additional micronodules in the right upper lobe (5:93), left upper lobe (5:65), and left lower lobe (5:212). Upper lobe predominant emphysema. Mild diffuse bronchial wall thickening. Patent central airways. Pleura: No pleural effusion or pneumothorax. Mediastinum: The heart size is normal. No pericardial effusion. Lymph Nodes: No enlarged supraclavicular, axillary, mediastinal, or hilar lymph nodes. Upper Abdomen: Absence of intravenous contrast and low dose technique limits sensitivity for detecting small lesions, solid organ and vascular findings. Status post cholecystectomy. Scattered colonic diverticula. Chest Wall: No mass in the visualized chest wall. Bones: No suspicious lytic or blastic lesions. Degenerative changes in the imaged spine. Procedure Note Margarita Lewis MD - 02/29/2024 CT CHEST LUNG CANCER SCREENING ANNUAL Referring clinician's provided indication for this examination in [facility]:Lung Cancer Screening - CURRENT smoker (20+ pk-yrs, age 50-80) - ICD -10F17.210 TECHNIQUE: Low dose multidetector CT of the chest was performed withoutintravenous contrast using tailored dose modulation techniques. COMPARISON: CT CHEST LUNG CANCER SCREENING INITIAL FINDINGS: Devices/Tubes/Lines: None. Lungs: Unchanged lung nodules including a 6 mm round glass left upper lobenodule (5:140), an additional micronodules in the right upper lobe (5:93),left upper lobe (5:65), and left lower lobe (5:212). Upper lobepredominant emphysema. Mild diffuse bronchial wall thickening. Patentcentral airways. Pleura: No pleural effusion or pneumothorax. Mediastinum: The heart size is normal. No pericardial effusion. Lymph Nodes: No enlarged supraclavicular, axillary, mediastinal, or hilarlymph nodes. Upper Abdomen: Absence of intravenous contrast and low dose techniquelimits sensitivity for detecting small lesions, solid organ and vascularfindings. Status post cholecystectomy. Scattered colonic diverticula. Chest Wall: No mass in the visualized chest wall. Bones: No suspicious lytic or blastic lesions. Degenerative changes in theimaged spine. IMPRESSION: Lung-RADS Category: 2. Multiple pulmonary nodules. Thecategory-determining nodule has a very low likelihood of becoming aclinically active cancer, due to size and/or lack of growth. RECOMMENDATIONS: Continue Lung-RADS Annual Lung Cancer Screening Chest CT in 12-14 monthsif patient meets eligibility criteria. To order, please type CT CHEST SCREENING (CT.[email or web address]) and selectANNUAL for patient program status. Explanation of the Lung-RADS categories can be found at:[email or web address] us Valente Curry MD IMG CT CHEST Final Result * HM DEXA SCAN (01/01/2024 3:45 PM EDT) us Valente Curry MD [facility] MAINTENANCE Edited Res ult - Final * Microalbumin/creatinine ratio, random urine (11/27/2023) Microalbumin, urine - External [facility] Creatinine, urine - External [facility] Urine Microalbumin/Cr eatinine Ratio - External 6.9 [facility] Urine (Urine) 11/27/2023 Valente Curry MD URINE ORDERABLES Edited Resul t - Final Performing Organization Address [facility]/ZIP Co de Phone Number [address] [address] * TSH (11/27/2023) [facility] TSH - External 0.64 [facility] Blood 11/27/2023 Valente Curry MD LAB BLOOD ORDERABLES Edited R esult - Final Performing Organization Address [facility]/ZIP Co de Phone Number [address] [address] * DIABETES EYE EXAM FOR RESULT ENTRY ONLY (12/06/2021 10:25 AM EDT) Result [facility] Historical Provider HEALTH MAINTENANCE Edited Result - Final * Outside Hepatitis C Virus Screening (10/05/2019) [facility] Hepatitis C Screening - External Neg Result [facility] Historical Jayesh MARTINS LAB BLOOD ORDERABLES Marie l Result * COLONOSCOPY FOR RESULT ENTRY ONLY (08/06/2016) [facility] Colonoscopy [address] [facility] Historical Provider HEALTH MAINTENANCE Final Result from Last 3 Months or Most Recently Relevant to Health Maintenance Insurance MEDICARE PART A & B iCurrent MEDEX SUPPLEMENT MEDICARE PART A & B iCurrent MEDEX SUPPLEMENT MEDICARE PART A & B iCurrent MEDEX SUPPLEMENT MEDICARE PART A & B iCurrent MEDEX SUPPLEMENT MEDICARE PART A & B iCurrent MEDEX SUPPLEMENT MEDICARE PART A & B iCurrent MEDEX SUPPLEMENT MEDICARE PART A & B [address] Right[employer] SUPPLEMENT MEDICARE PART A & B [address] Right[employer] SUPPLEMENT MEDICARE PART A & B [facility] MEDEX SUPPLEMENT Care Teams Drawing Supervisor Relationship Specialty Start Date End Date Valente Curry MD [address] [place] [address] [email or web address] PCP - General 02/19/17 Juan Luis Mcnamara MD [address] [place] [address] [place] [address] Ophthalmology 10/10/19 Valente Curry MD [address] [place] [address] [email or web address] Insurance Assigned Provider 08/08/23 Additional Source Comments The information contained in this document represents components of the legal health record. It is not the complete legal health record.[facility]
--- OUTSIDE RECORDS SUMMARY | 2024-12-30 09:09 | XMS_ITS | Encounter Summary ---
Author Organization [facility] Address [address] [facility] [address] [place] [id number] Phone Care Team Providers Care Digital Marketing Lead Name Role Phone Valente Curry MD Primary Care Provider [phone] Juan Luis Mcnamara MD Unavailable Valente Curry MD Unavailable [phone] Encounter Details Date Type Department Care Team (Late st Contact Info) Description 12/25/2023 Procedure [facility], Ct Scan - [address] [address] Social History Tobacco Use Types Packs/Day Years Used Date Smoking Tobacco: Every Day Cigarettes 0.5 56.7 Started: 1966 Smokeless Tobacco: Never Comments:1ppd for 27 years a nd 1/2 pack for 26 years 14-15 cigarettes QD-noted 12/12/22 14 cigarette QD-noted 06/05/23 14 cigarette QD-noted 12/25/23 Alcohol Use Standard Drinks/Week Comments Never 0 [...] ecorded Denied Basic Needs Not on file 06/05/2023 In the past 12 months have y ou been in a relationship with a person who hurts, threatens, or tries to control you? No 06/05/2023 Worried food would run out Not on file 06/05 In the past 12 months have y ou been in a relationship with a person who hurts, threatens, or tries to control you? No 06/05/2023 Comments No Sex and Gender Information Value [...] Description 07/07/2025 2:30 PM EST Office Visit [facility] Internal Medicine [address] [place] [address] Valente Curry MD [address] [place] [address] [email or web address] documented as of this encounter Visit Diagnoses Not on filedocumented in this encounter Additional Health Concerns Infection Onset Date Last Indicated Resolved Time CoV-Risk 05/03/2024 05/03/2024 05/03/2024 10:2 4 AM EST COVID-19 05/03/2024 05/03/2024 05/24/2024 1:21 AM EST Assessment Noted Time PHQ-2 Depression Total Score: 0 06/05/19 24 1:53 PM EST documented as of this encounter Care Teams Digital Marketing Lead Relationship Specialty Start Date End Date Valente Curry MD [address] [place] [address] PCP - General 02/19/17 Juan Luis Mcnamara MD [address] [place] [address] [place] [address] Ophthalmology 10/10/19 Valente Curry MD [address] [place] [address] [email or web address] Insurance Assigned Provider 08/08/23 documented as of this encounter Additional Source Comments The information contained in this document represents components of the legal health record. It is not the complete legal health record.[facility]
--- OUTSIDE RECORDS SUMMARY | 2024-12-30 09:09 | XMS_ITS | Encounter Summary ---
Author Organization [facility] Address [address] [facility] [address] [place] [id number] Phone Care Team Providers Care Nuts And Bolts Assembler Name Role Phone Valente Curry MD Primary Care Provider [phone] Juan Luis Mcnamara MD Unavailable Valente Curry MD Unavailable [phone] Encounter Details Date Type Department Care Team (Late st Contact Info) Description 12/26/2024 Orders Only [facility] [address] [place] [address] Provider, MD [facility] [place] [address] Social History Tobacco Use Types Packs/Day Years Used Date Smoking Tobacco: Every Day Cigarettes 0.5 56.7 Started: 1967 Smokeless Tobacco: Never Comments:1ppd for 27 years [...] Description 07/07/2025 2:30 PM EST Office Visit [facility] [address] [place] [address] Valente Curry MD [address] [place] [address] [email or web address] documented as of this encounter Procedures Procedure Name Priority Date/Time Associated Diagnosis Comments HEMOGLOBIN A1C Routine 12/23/2024 2:17 PM EDT documented in this encounter Results * Hemoglobin A1c (12/23/2024 2:17 PM EDT) us Historical Provider LAB BLOOD ORDERABLES Marie l Result documented in this encounter Visit Diagnoses Not on filedocumented in this encounter Additional Health Concerns Assessment Noted Time PHQ-2 Depression Total Score: 0 06/29/19 25 10:00 PM EST documented as of this encounter Care Teams Nuts And Bolts Assembler Relationship Specialty Start Date End Date Valente Curry MD [address] [place] [address] [email or web address] PCP - General 02/19/17 Juan Luis Mcnamara MD [address] [place] [address] [place] [address] Ophthalmology 10/10/19 Valente Curry MD [address] [place] [id number] [email or web address] Insurance Assigned Provider 08/08/23 documented as of this encounter Additional Source Comments The information contained in this document represents components of the legal health record. It is not the complete legal health record.[facility]
[2024-12-30 09:16] LABS: Hematocrit 42.1 % (37.0-47.0); Hemoglobin 13.2 g/dl (12.0-16.0); Imm Gran Abs Auto 0.02 X10*3/uL (0.00-0.03); Imm Gran Pct Auto 0.3 % (0.0-0.4); Lymphocytes Absolute Auto 1.9 X10*3/uL (1.2-4.9); Mean Corpuscular HGB Conc 31.4 g/dl (31.0-35.0); Mean Corpuscular Hemoglobin 25.8 pg (27.0-33.0); Mean Corpuscular Volume 82.2 fL (80.0-98.0); NRBC Abs Auto 0.000 X10*3/uL (0.0-0.012); NRBC Pct Auto 0.0 /100WBC (0.0-0.2); Platelet Count 258 X10*3/uL (160-400); Red Blood Count 5.12 X10*6/uL (4.20-5.50); White Blood Count 6.5 X10*3/uL (4.8-10.8)
[2024-12-30 09:52] LABS: Alanine Aminotransferase 17 U/L (0-31); Albumin Level 4.2 g/dL (3.5-5.0); Alkaline Phosphatase 72 U/L (39-117); Anion Gap 15 (12-20); Aspartate Amino Transferase 25 U/L (5-31); Blood Urea Nitrogen 13 mg/dL (9-16); Calcium 9.0 mg/dL (8.4-10.2); Carbon Dioxide 25 mmol/L (22-29); Chloride 104 mmol/L (96-108); Cholesterol 146 mg/dL (<200); Estimated Glomerular Filt Rate > 60; HDL Cholesterol 39 mg/dL (>40); Potassium 4.5 mmol/L (3.3-5.1); Sodium 139 mmol/L (135-145); Total Protein 6.9 g/dL (6.5-8.0); Triglycerides 193 mg/dL (<150)
== END 2024-12-30 08:24 | disposition home or self-care (01) ==
LOC: HO.LAB 08:23
PROVIDERS: PCP Internal Medicine; Visit Provider Internal Medicine
DX: I10 Essential (primary) hypertension (principal); E11.42 Type 2 diabetes mellitus with diabetic polyneuropathy; E03.9 Hypothyroidism, unspecified; M81.0 Age-related osteoporosis without current pathological fracture
CPT/HCPCS: 36415; 80053; 80061; 82306; 84443; 85025